=== PATIENT | female | born 1995 | race Caucasian/White ===

== ENCOUNTER 2017-05-08 01:40 | Emergency (ER) | payer OTHER ==
[~2017-05-08] VITALS: Ht 149.9 cm; Wt 63.5 kg
--- NOTE | 2017-05-08 02:23 | PHYS DOC ---
Adult General Chief Complaint Chief Complaint: ABDOMINAL PAIN HPI HPI Patient is a [21-year-old female with no significant past medical history presents with complaints of abdominal pain that started one hour and a half prior to arrival to the emergency department. The patient states the pain is in the middle of her abdomen. Patient has not had any vomiting, diarrhea, rashes, changes in the skin, unusual vaginal discharge or bleeding. Patient patient states she has some problems with urination earlier but it was able to urinate in the emergency department. Patient also reports mild low back pain that is chronic in nature. Patient denies any sick contacts Review of Systems Review of Systems Constitutional: Denies fever or chills [] HENT: Denies nasal congestion or sore throat [] Respiratory: Denies cough or shortness of breath [] Cardiovascular: No additional information not addressed in HPI [] GI: As per history of present illness : Denies dysuria or hematuria [] Musculoskeletal: As per history of present illness Integument: Denies rash or skin lesions [] Neurologic: Denies headache, focal weakness or sensory changes [] All other systems were reviewed and found to be within normal limits, except as documented in this note. Current Medications Current Medications Current Medications Medications (Trade) Dose Ordered Sig/Guillaume Start Time Stop Time Status Last Admin Dose Admin Sodium Chloride 1,000 ml @ 1,000 mls/hr 1X ONCE 05/08/17 02:30 05/08/17 03:29 Allergies Allergies Allergies Coded Allergies Type Severity Reaction Last Updated Verified No Known Drug Allergies 05/08/17 No Physical Exam Physical Exam Constitutional: Well developed, well nourished, no acute distress, non-toxic appearance. [] HENT: Normocephalic, atraumatic, bilateral external ears normal, oropharynx dry , no oral exudates, nose normal. [] Eyes: EOMI, conjunctiva normal, no discharge. [] Neck: Normal range of motion, trachea midline, no stridor. [] Cardiovascular: Tachycardia, equal pulses, normal perfusion[] Lungs & Thorax: Bilateral breath sounds clear to auscultation, no tachypnea Abdomen: Bowel sounds normal, soft, very mild tenderness to palpation in the upper abdomen in the mid abdomen without guarding or rebound, no masses, no pulsatile masses. [] Skin: Warm, dry, no erythema, no rash. [] Back: No tenderness, no CVA tenderness. [] Extremities: No tenderness, no DVT, ROM intact, no edema. [] Neurologic: Alert and oriented X 3, normal motor function, normal speech, no focal deficits noted. [] Psychologic: Affect normal, judgement normal, mood normal. [] Current Patient Data Lab Results Laboratory Tests Test 05/08/17 02:08 Glucose (Fingerstick) 105 mg/dL (70-99) H EKG EKG [] Radiology/Procedures Radiology/Procedures [] Course & Med Decision Making Course & Med Decision Making Pertinent Labs and Imaging studies reviewed. (See chart for details) [] Dragon Disclaimer Dragon Disclaimer This electronic medical record was generated, in whole or in part, using a voice recognition dictation system. Departure Departure: Impression: Primary Impression: Abdominal pain Additional Impressions: UTI (urinary tract infection) Leukocytosis Disposition: HOME, SELF-CARE Condition: STABLE Referrals: OSCAR CABA MD (PCP) please follow up with your pcp for recheck/reevaluation in 2-3 days. If symtpoms worsen or new concerning symptoms develop return to the ED immediately Patient Instructions: Abdominal Pain, Urinary Tract Infection Scripts Hyoscyamine Sulfate (LEVSIN-SL) 0.125 Mg Tab.subl 0.125 MG SL TID for 3 Days, #9 TAB 0 Refills Prov: Albaro CASTILLO MD 05/08/17 Nitrofurantoin Monohyd/M-Cryst (MACROBID 100 MG CAPSULE) 100 Mg Capsule 1 CAP PO BID, #14 CAP Prov: Albaro CASTILLO MD 05/08/17 Problem Qualifiers Albaro CASTILLO MD May 08, 2017 02:23
[2017-05-08] MEDS ORDERED: IV NORMAL SALINE 1,000ML 1,000 ML IV ONE (02:30)
[2017-05-08 02:46] LABS: BASO # 0.1 x10^3/uL (0.0-0.2); BASO % 0 % (0-3); EOS % 0 % (0-3); HEMATOCRIT 41.3 % (36.0-47.0); HEMOGLOBIN 14.2 g/dL (12.0-15.5); LYMPH # 3.1 x10^3/uL (1.0-4.8); LYMPH % 19 % (24-48); MEAN CORPUSCULAR HEMOGLOBIN 30 pg (25-35); MEAN CORPUSCULAR HGB CONC 35 g/dL (31-37); MEAN CORPUSCULAR VOLUME 87 fL (79-100); MONO % 6 % (0-9); NEUT # 12.2 x10^3uL (1.8-7.7); NEUT % 75 % (31-73); PLATELET COUNT 278 x10^3/uL (140-400); RED BLOOD COUNT 4.75 x10^6/uL (3.50-5.40); RED CELL DISTRIBUTION WIDTH 13.1 % (11.5-14.5); WHITE BLOOD COUNT 16.3 x10^3/uL (4.0-11.0)
[2017-05-08 02:52] LABS: BILIRUBIN,URINE NEG (NEG); CLARITY,URINE CLOUDY; COLOR,URINE YELLOW; GLUCOSE,URINE NEG (NEG); NITRITE,URINE POS (NEG); RBC,URINE OCC /HPF (0-2); UROBILINOGEN,URINE 0.2 mg/dL (0.2 mg/dL)
[2017-05-08 02:53] LABS: BACTERIA,URINE MANY /HPF (0-FEW); SQUAMOUS EPITHELIAL CELL,UR MOD /LPF
[2017-05-08 02:58] LABS: ALBUMIN 4.4 g/dL (3.4-5.0); ALBUMIN/GLOBULIN RATIO 1.2 (1.0-1.7); CALCIUM 9.7 mg/dL (8.5-10.1); CREATININE 0.7 mg/dL (0.6-1.0); GFR 106.7; POTASSIUM 3.5 mmol/L (3.5-5.1); TOTAL BILIRUBIN 0.2 mg/dL (0.2-1.0); TOTAL PROTEIN 8.2 g/dL (6.4-8.2)
[2017-05-08 03:12] LABS: % BANDS 3 % (0-9); % LYMPHS 19 % (24-48); % MONOS 6 % (0-10); % SEGS 72 % (35-66)
[2017-05-08 03:13] LABS: HYPERSEGS PRESENT; PLT ESTIMATE ADEQUATE (ADEQUATE); TOXIC GRANULATION SLIGHT
[2017-05-08] MEDS ORDERED: NITR100C62 PO (03:26)
[2017-05-08] MEDS ORDERED: HYOS0.1265 SL (03:26)
[2017-05-08 03:39] VITALS: BP 118/73
== END 2017-05-08 03:39 | disposition home or self-care (01) ==
LOC: ER 01:40
DX: N39.0 Urinary tract infection, site not specified (principal); D72.829 Elevated white blood cell count, unspecified; G89.29 Other chronic pain
CPT/HCPCS: 36415; 80053; 81001; 81025; 82947; 85007; 85025; 87086; 96360; 99284-25; J7030

== ENCOUNTER 2020-01-31 21:49 | Emergency (ER) | payer SELFPAY ==
[~2020-01-31] VITALS: Ht 152.4 cm; Wt 69.0 kg
[~2020-01-31 21:49] MED LIST: HYOS0.1265 SL; NITR100C62 PO
[2020-01-31 23:12] LABS: BACTERIA,URINE 0 /HPF (0-FEW); BILIRUBIN,URINE NEG (NEG); CLARITY,URINE CLEAR; COLOR,URINE YELLOW; GLUCOSE,URINE NEG (NEG); NITRITE,URINE NEG (NEG); RBC,URINE 0 /HPF (0-2); SQUAMOUS EPITHELIAL CELL,UR MOD /LPF; UROBILINOGEN,URINE 0.2 mg/dL (0.2 mg/dL); WBC,URINE OCC /HPF (0-4)
--- NOTE | 2020-02-01 00:24 | PHYS DOC ---
Past History Past Medical History: No Pertinent History, Depression Past Surgical History: No Surgical History Alcohol Use: Occasionally Drug Use: None General Adult EDM: Chief Complaint: VAGINAL PROBLEM HPI: HPI: 24-year-old female presents with vaginal discharge. The patient has had vaginal discharge on and off for last couple of weeks. She has taken 1 fluconazole thinking it might be a yeast infection. She denies itching. She has had some whitish discharge. She does not believe that she has an STD. She is a monogamous relationship. She denies dysuria or urinary frequency. She has not had a menstrual cycle in 4 or 5 months, but has had a negative test 15 days ago. She denies fever or chills. Review of Systems: Review of Systems: Constitutional: Denies fever or chills Eyes: Denies change in visual acuity HENT: Denies nasal congestion or sore throat Respiratory: Denies cough or shortness of breath Cardiovascular: Denies chest pain or edema GI: Denies abdominal pain, nausea, vomiting, bloody stools or diarrhea : Vaginal discharge Musculoskeletal: Denies back pain or joint pain Integument: Denies rash Neurologic: Denies headache, focal weakness or sensory changes Endocrine: Denies polyuria or polydipsia Lymphatic: Denies swollen glands Psychiatric: Denies depression or anxiety Heart Score: Risk Factors: Risk Factors: DM, Current or recent (<one month) smoker, HTN, HLP, family history of CAD, obesity. Risk Scores: Score 0 - 3: 2.5% MACE over next 6 weeks - Discharge Home Score 4 - 6: 20.3% MACE over next 6 weeks - Admit for Clinical Observation Score 7 - 10: 72.7% MACE over next 6 weeks - Early Invasive Strategies Allergies: Allergies: Allergies Coded Allergies Type Severity Reaction Last Updated Verified No Known Drug Allergies 05/08/17 No Physical Exam: PE: Constitutional: Well developed, well nourished, no acute distress, non-toxic appearance. [] HENT: Normocephalic, atraumatic, bilateral external ears normal, oropharynx moist, no oral exudates, nose normal. [] Eyes: PERRLA, EOMI, conjunctiva normal, no discharge. [] Neck: Normal range of motion, no tenderness, supple, no stridor. [] Cardiovascular:Heart rate regular rhythm, no murmur [] Lungs & Thorax: Bilateral breath sounds clear to auscultation [] Abdomen: Bowel sounds normal, soft, no tenderness, no masses, no pulsatile masses. [] Skin: Warm, dry, no erythema, no rash. [] Back: No tenderness, no CVA tenderness. [] Extremities: No tenderness, no cyanosis, no clubbing, ROM intact, no edema. [] Neurologic: Alert and oriented X 3, normal motor function, normal sensory function, no focal deficits noted. [] Psychologic: Affect normal, judgement normal, mood normal. : Shaved pubic hair, normal external genitalia, medium thickness white discharge. No cervical motion tenderness. [] Current Patient Data: Labs: Laboratory Tests Test 01/31/20 22:15 Urine Collection Type Unknown Urine Color Yellow Urine Clarity Clear Urine pH 5.5 Urine Specific [place] >=1.030 Urine Protein Neg (NEG-TRACE) Urine Glucose (UA) Neg mg/dL (NEG) Urine Ketones (Stick) 40 mg/dL (NEG) Urine Blood Neg (NEG) Urine Nitrite Neg (NEG) Urine Bilirubin Neg (NEG) Urine Urobilinogen Dipstick 0.2 mg/dL (0.2 mg/dL) Urine Leukocyte Esterase Neg (NEG) Urine RBC 0 /HPF (0-2) Urine WBC Occ /HPF (0-4) Urine Squamous Epithelial Cells Mod /LPF Urine Bacteria 0 /HPF (0-FEW) Vital Signs: Vital Signs Date Time Temp Pulse Resp B/P (MAP) Pulse Ox O2 Delivery O2 Flow Rate FiO2 01/31/20 22:15 99.5 132 20 150/82 (104) 99 Room Air EKG: EKG: [] Radiology/Procedures: Radiology/Procedures: [] Course & Med Decision Making: Course & Med Decision Making Pertinent Labs and Imaging studies reviewed. (See chart for details) Urinalysis is negative for infection. The patient's wet prep is suggestive of bacterial vaginosis. I will treat her with metronidazole for 7 days. She is stable for discharge at this time. [] Dragon Disclaimer: Dragon Disclaimer: This electronic medical record was generated, in whole or in part, using a voice recognition dictation system. Departure Departure: Impression: Primary Impression: Bacterial vaginosis Disposition: HOME/RESIDENCE PRIOR TO ADM Condition: STABLE Referrals: PCP,NO (PCP) Patient Instructions: Bacterial Vaginosis, [id number] Scripts Metronidazole (METRONIDAZOLE) 500 Mg Tablet 1 TAB PO BID for bacterial vaginosis for 7 Days, #14 TAB 0 Refills Prov: ANSLEY WALLS DO 02/01/20 ANSLEY WALLS DO Feb 01, 2020 00:24
[2020-02-01] MEDS ORDERED: METR-34 PO (01:31)
[2020-02-01 01:41] VITALS: BP 123/46
[2020-02-01 01:45] LABS: U PREG PATIENT NEGATIVE (NEG)
[2020-02-02 20:06] LABS: CHLAMYDIA PROBE Negative (Negative)
== END 2020-02-01 01:42 | disposition home or self-care (01) ==
LOC: ER 21:49
DX: N76.0 Acute vaginitis (principal); B96.89 Other specified bacterial agents as the cause of diseases classified elsewhere
CPT/HCPCS: 36415; 81001; 81025; 87491; 87591; 99283; Q0111

== ENCOUNTER 2020-06-17 23:34 | Emergency (ER) | payer SELFPAY ==
[~2020-06-17] VITALS: Ht 149.9 cm; Wt 68.0 kg
[~2020-06-17 23:34] MED LIST changes: +METR-34 PO
[2020-06-18 00:37] LABS: BACTERIA,URINE 0 /HPF (0-FEW); BILIRUBIN,URINE NEG (NEG); CLARITY,URINE HAZY; COLOR,URINE YELLOW; GLUCOSE,URINE NEG (NEG); NITRITE,URINE NEG (NEG); RBC,URINE 0 /HPF (0-2); SQUAMOUS EPITHELIAL CELL,UR MANY /LPF; UROBILINOGEN,URINE 0.2 mg/dL (0.2 mg/dL); WBC,URINE OCC /HPF (0-4)
--- NOTE | 2020-06-18 01:54 | PHYS DOC ---
Past History Past Medical History: No Pertinent History, Depression Past Surgical History: No Surgical History Alcohol Use: Occasionally Drug Use: None Adult General Chief Complaint Chief Complaint: PAIN ON URINATION HPI HPI Patient is an otherwise healthy 24-year-old female who presents with dysuria for approximately 3 days. States that after having intercourse with her monogamous boyfriend few days ago she started having some dysuria. States that they did use some lubrication. Denies any fevers, chest pain, shortness of breath, abdominal pain, nausea, vomiting, hematuria or blood in the stool. States that neither she or her partner have never had a sexually transmitted infection. Denies any vaginal bleeding, discharge, pain or inguinal lymphadenopathy or genital lesions. Review of Systems Review of Systems Review of systems otherwise unremarkable except noted in HPI Allergies Allergies Allergies Coded Allergies Type Severity Reaction Last Updated Verified No Known Drug Allergies 05/08/17 No Physical Exam Physical Exam Constitutional: Well developed, well nourished, no acute distress, non-toxic appearance. [] HENT: oropharynx moist, no oral exudates, Eyes:conjunctiva normal, no discharge. [] Cardiovascular:Heart rate regular rhythm, no murmur [] Abdomen: soft, no tenderness, no masses, no pulsatile masses. [] Skin: Warm, dry, no erythema, no rash. [] Back: CVA tenderness. [] Extremities: No tenderness, no cyanosis, no clubbing, ROM intact, no edema. [] Neurologic: Alert and oriented X 3, normal motor function, normal sensory function, no focal deficits noted. [] Psychologic: Affect normal, judgement normal, mood normal. [] Current Patient Data Lab Results Laboratory Tests Test 06/17/20 23:40 Urine Collection Type Unknown Urine Color Yellow Urine Clarity Hazy Urine pH 6.5 Urine Specific [place] 1.025 Urine Protein Neg (NEG-TRACE) Urine Glucose (UA) Neg mg/dL (NEG) Urine Ketones (Stick) Neg mg/dL (NEG) Urine Blood Neg (NEG) Urine Nitrite Neg (NEG) Urine Bilirubin Neg (NEG) Urine Urobilinogen Dipstick 0.2 mg/dL (0.2 mg/dL) Urine Leukocyte Esterase Neg (NEG) Urine RBC 0 /HPF (0-2) Urine WBC Occ /HPF (0-4) Urine Squamous Epithelial Cells Many /LPF Urine Bacteria 0 /HPF (0-FEW) EKG EKG [] Radiology/Procedures Radiology/Procedures [] Heart Score Risk Factors: Risk Factors: DM, Current or recent (<one month) smoker, HTN, HLP, family history of CAD, obesity. Risk Scores: Risk Factors: DM, Current or recent (<one month) smoker, HTN, HLP, family history of CAD, obesity. Course & Med Decision Making Course & Med Decision Making Patient is a 24-year-old female who presents with a chief complaint of 3 days of dysuria Vital signs not concerning. Physical exam noted above. Urinalysis not concerning. Discussed differential diagnosis with patient including sexually transmitted infections. Patient stated she did not feel that that was the issue and would wait to talk to her primary care physician about this before being tested and/or treated Other things on the differential including chemical urethritis, given recent unprotected sexual activity with lubrication. Given contact information for PCP. Advised on management at home. Advised to come back to the ED with new or concerning symptoms. Patient grateful, verbalized understanding and agreed with plan of discharge. [] Dragon Disclaimer Dragon Disclaimer This electronic medical record was generated, in whole or in part, using a voice recognition dictation system. Departure Departure: Impression: Primary Impression: Dysuria Disposition: 01 DC HOME SELF CARE/HOMELESS Condition: GOOD Referrals: PCP,NO (PCP) GINA RODRIGUEZ MD Patient Instructions: Dysuria Additional Instructions: Please read all the attached information. And as discussed, please refrain from any sexual activity/use of lubrication or chemicals over the next several days. Even when washing, please use a gentle nonirritating soap and warm water only. Please call the primary care provider at the number given to set up a post ER follow-up visit. As discussed, please come back to the emergency department any new or concerning symptoms. MILES GOLD MD Jun 18, 2020 01:54
[2020-06-18 02:05] VITALS: BP 124/65
== END 2020-06-18 02:05 | disposition home or self-care (01) ==
LOC: ER 23:34
DX: R30.0 Dysuria (principal)
CPT/HCPCS: 81001; 99283

== ENCOUNTER 2021-09-29 15:45 | Emergency (ER) | payer SELFPAY ==
[~2021-09-29] VITALS: Ht 149.9 cm; Wt 65.3 kg
--- NOTE | 2021-09-29 17:32 | PHYS DOC ---
Past History Past Medical History: STD Past Surgical History: No Surgical History Alcohol Use: Occasionally Drug Use: None General Adult EDM: Chief Complaint: PELVIC PAIN HPI: HPI: Patient is a 25-year-old female who presents to the emergency department today dysuria, green vaginal discharge, vaginal itching and been intermittent for 3 days. Patient reports a bump" to her left labia that has been intermittent over a week. Patient denies any vaginal bleeding, odor, nausea, vomiting. Review of Systems: Review of Systems: GI: see HPI : see HPI Integument: see HPI Allergies: Allergies: Allergies Coded Allergies Type Severity Reaction Last Updated Verified No Known Drug Allergies 05/08/17 No Physical Exam: PE: Constitutional: Well developed, well nourished, no acute distress, non-toxic appearance. [] HENT: Normocephalic, atraumatic, bilateral external ears normal, oropharynx moist, no oral exudates, nose normal. [] Eyes: PERRL, EOMI, conjunctiva normal, no discharge. [] Neck: Normal range of motion, no tenderness, supple, no stridor. [] Cardiovascular:Heart rate regular rhythm, no murmur [] Lungs & Thorax: Bilateral breath sounds clear to auscultation [] Abdomen: Bowel sounds normal, soft, no tenderness, no masses, no pulsatile ma sses. [] Skin: Warm, dry, no erythema, no rash. [] Back: No tenderness, normal range of motion Extremities: No tenderness, no cyanosis, no clubbing, ROM intact, no edema. [] Neurologic: Alert and oriented X 3, normal motor function, normal sensory function, no focal deficits noted. [] Psychologic: Affect normal, judgement normal, mood normal. [] Current Patient Data: Labs: Laboratory Tests Test 09/29/21 17:20 Urine Collection Type Unknown Urine Color Yellow Urine Clarity Hazy Urine pH 6.0 Urine Specific [place] >=1.030 Urine Protein Neg Urine Glucose (UA) Neg mg/dL Urine Ketones (Stick) 40 mg/dL Urine Blood Neg Urine Nitrite Neg Urine Bilirubin Neg Urine Urobilinogen Dipstick 0.2 mg/dL Urine Leukocyte Esterase Neg Urine RBC 1-2 /HPF Urine WBC Rare /HPF Urine Squamous Epithelial Cells Mod /LPF Urine Bacteria Few /HPF Urine Mucus Slight /LPF EKG: EKG: [] Radiology/Procedures: Radiology/Procedures: [] Heart Score: C/O Chest Pain: N/A Risk Factors: Risk Factors: DM, Current or recent (<one month) smoker, HTN, HLP, family history of CAD, obesity. Risk Scores: Score 0 - 3: 2.5% MACE over next 6 weeks - Discharge Home Score 4 - 6: 20.3% MACE over next 6 weeks - Admit for Clinical Observation Score 7 - 10: 72.7% MACE over next 6 weeks - Early Invasive Strategies Course & Med Decision Making: Course & Med Decision Making Pertinent Labs and Imaging studies reviewed. (See chart for details) [] Patient presents to the emergency department for dysuria, vaginal itching, vaginal discharge and a bump noted to her left labia. On physical assessment, patient does have a small raised papule to her left labia which is consistent with a ingrown hair. Patient will be tested for wet, gonorrhea and chlamydia, urinalysis. Pelvic exam did not show white/green thin vaginal discharge, no vaginal odor, no friable appearance of cervix, no adnexal tenderness, no CMT. Wet prep was positive for bacterial vaginosis, urinalysis did not show any urinary tract infection. Patient be treated with metronidazole. Advised to a void sexual intercourse until she receives results. I discussed with patient all findings and diagnostic testing as well as the need to follow-up with PCP for further evaluation and treatment or return to the ER if any new or worsening symptoms. Strict return precautions were also discussed at length. Patient voiced understanding and agreement with the plan. Patient is hemodynamically stable at the time of disposition. Tania Disclaimer: Tania Disclaimer: This electronic medical record was generated, in whole or in part, using a voice recognition dictation system. Departure Departure: Impression: Primary Impression: Bacterial vaginosis Disposition: HOME / SELF CARE / HOMELESS Condition: GOOD Referrals: PCP,NO (PCP) Patient Instructions: Bacterial Vaginosis Additional Instructions: You are seen in the emergency department today for vaginal discharge. You are noted to be positive for bacterial vaginosis which is treated with metronidazole. Do not drink with this medication as it would cause severe vomiting. Please avoid sexual intercourse until you receive your results of your STI testing in approximately 1 to 2 days. If you are positive for an STI please notify your sexual partners. You require comprehensive STI/STD testing please follow-up with your local health department. Follow-up with your primary care provider within 1 week for reevaluation. Return to the emergency department if you develop abdominal pain, vaginal bleeding, intractable nausea or vomiting. Scripts Metronidazole (METRONIDAZOLE) 500 Mg Tablet 1 TAB PO BID for bacterial vaginosis for 7 Days, #14 TAB 0 Refills Prov: SEMAJ NANCE APRN 09/29/21 SEMAJ NANCE APRN September 29, 2021 17:32
[2021-09-29 17:46] LABS: BACTERIA,URINE FEW /HPF (0-FEW); CLARITY,URINE HAZY; COLOR,URINE YELLOW; GLUCOSE,URINE NEG (NEG); NITRITE,URINE NEG (NEG); SQUAMOUS EPITHELIAL CELL,UR MOD /LPF; UROBILINOGEN,URINE 0.2 mg/dL (0.2 mg/dL); WBC,URINE RARE /HPF (0-4)
[2021-09-29] MEDS ORDERED: METR-34 PO (18:09)
[2021-09-29] MEDS ORDERED: metroNIDAZOLE 500 MG TABLET PO ONE (18:15)
[2021-09-29 18:20] VITALS: BP 128/79
[2021-09-29 18:22] LABS: U PREG PATIENT NEGATIVE (NEG)
[2021-10-01 21:06] LABS: CHLAMYDIA PROBE Negative (Negative)
== END 2021-09-29 18:25 | disposition home or self-care (01) ==
LOC: ER 15:45
DX: N76.0 Acute vaginitis (principal); B96.89 Other specified bacterial agents as the cause of diseases classified elsewhere
CPT/HCPCS: 81001; 81025; 87491; 87591; 99284; Q0111; 51702; 99283